=== PATIENT | male | born 1975 | race Caucasian/White ===

== ENCOUNTER 2017-01-24 03:21 | Emergency (ER) | payer MEDICARE, OTHER ==
[2017-01-24] MEDS ORDERED: IBUPROFEN 400 MG TAB PO STA (04:57)
--- NOTE | 2017-01-24 05:13 | ED ---
General Adult HPI - General Chief complaint: Upper Respiratory Infection Stated complaint: congestion Time Seen by Provider: 01/24/17 03:31 Source: patient Mode of arrival: ambulatory Limitations: no limitations - History of Present Illness Initial comments: This patient is a 41-year-old man who presents to be evaluated for cough, nasal congestion, low-grade temperature. The patient states that what is bothering him the most is that he has not been able to breathe through his nose and it's making it difficult for him to sleep. He tried taking an [id number]-[id number] cough remedy but it was not providing much relief. Patient denies chest pain. He states that his cough is for the most part nonproductive. He is not feeling short of breath. Onset/Timin -: days(s) Associated Symptoms: cough Treatments Prior to Arrival: other ([id number] cough remedy) - Related Data Previous Rx's Medication Instructions Recorded Benzonatate [Tessalon Perles] 100 mg PO TID PRN #20 capsule 01/24/17 Mometasone Furoate [Nasonex Nasal 1 - 2 spray EA NOSTRIL DAILY #1 01/24/17 [place]] bottle Allergies Allergy/AdvReac Type Severity Reaction Status Date / Time No Known Allergies Allergy Verified 01/24/17 03:28 Review of Systems ROS Statement: Those systems with pertinent positive or pertinent negative responses have been documented in the HPI. ROS Other: All systems not noted in ROS Statement are negative. Constitutional: Reports: fever. Denies: chills ENT: Reports: congestion. Denies: ear pain Respiratory: Reports: cough. Denies: dyspnea, wheezes, hemoptysis Cardiovascular: Denies: chest pain, palpitations, edema, syncope Gastrointestinal: Denies: abdominal pain, vomiting Musculoskeletal: Denies: back pain Skin: Denies: rash Neurological: Denies: headache, weakness, numbness Past Medical History Past Medical History: No Reported History, Hypertension History of Any Multi-Drug Resistant Organisms: None Reported Past Surgical History: No Surgical Hx Reported Past Psychological History: No Psychological Hx Reported Smoking Status: Current every day smoker Past Alcohol Use History: Occasional Past Drug Use History: Marijuana General Exam Limitations: no limitations General appearance: alert, in no apparent distress Head exam: Present: atraumatic, normocephalic Eye exam: Present: normal appearance. Absent: scleral icterus, conjunctival injection ENT exam: Present: normal oropharynx Neck exam: Present: normal inspection, full ROM, lymphadenopathy. Absent: tenderness, meningismus Respiratory exam: Present: normal lung sounds bilaterally. Absent: respiratory distress, wheezes, rales, rhonchi, stridor Cardiovascular Exam: Present: regular rate, normal rhythm, normal heart sounds GI/Abdominal exam: Present: soft. Absent: tenderness, guarding, rebound Extremities exam: Absent: pedal edema, calf tenderness Back exam: Present: normal inspection. Absent: CVA tenderness (R), CVA tenderness (L) Neurological exam: Present: alert, normal gait Skin exam: Present: warm, dry, intact, normal color. Absent: rash Course Vital Signs 01/24/17 01/24/17 03:26 05:40 Temperature 97.9 F 97.6 F Pulse Rate 75 72 Respiratory 20 16 Rate Blood Pressure 151/75 154/83 O2 Sat by Pulse 96 96 Oximetry Medical Decision Making - Medical Decision Making Patient's a 41-year-old man with upper respiratory infection and probable viral syndrome. His influenza test is negative. On arrival the patient had been concerned about possibility of developing pneumonia, but his exam does show clear lung signs and normal sats. I did offer a chest x-ray given the fever and the cough with sputum, but the patient was feeling better after being here and declined to have the x-ray. We did discuss appropriate return parameters and he will return should he have any worsening at all or if he is not improving as expected. - Lab Data Lab Results 01/24/17 Range/Units 04:10 Influenza Type A RNA Not Detected (Not Detectd) Influenza Type B (PCR) Not Detected (Not Detectd) Disposition Clinical Impression: Viral syndrome Disposition: HOME SELF-CARE Condition: Good Instructions: Viral Syndrome (ED) Prescriptions: Benzonatate [Tessalon Perles] 100 mg PO TID PRN #20 capsule PRN Reason: Cough Mometasone Furoate [Nasonex Nasal [place]] 1 - 2 spray EA NOSTRIL DAILY #1 bottle Referrals: Agapito Sinha DO [Primary Care Provider] - 1-2 days
[2017-01-24 06:21] VITALS: BP 154/83; PULSE 72; RESP 16; TEMP 97.6
== END 2017-01-24 05:40 | disposition home or self-care (01) ==
LOC: EC 03:21
DX: B34.9 Viral infection, unspecified (principal); R05 Cough; R09.81 Nasal congestion; F17.200 Nicotine dependence, unspecified, uncomplicated
CPT/HCPCS: 87502; 99283

== ENCOUNTER → 2019-08-27 | Outpatient (CLI) | payer MEDICARE, OTHER | END | disposition home or self-care (01) | LOC: LABWHC1 10:59 | PROVIDERS: ATTEND Family Medicine | DX: R94.5 Abnormal results of liver function studies (principal) | CPT/HCPCS: 36415; 82140 ==

== ENCOUNTER 2023-09-08 18:43 | Emergency (ER) | payer MEDICARE, OTHER ==
[2023-09-08 19:05] VITALS: TEMP 97.5
[2023-09-08] MEDS ORDERED: SODIUM CHLORIDE 0.9% 1,000 ML IV STA (19:09)
--- NOTE | 2023-09-08 19:26 | ED ---
General Adult HPI - General Chief complaint: Animal Bite Stated complaint: dog bite Time Seen by Provider: 09/08/23 18:54 Source: patient, RN notes reviewed, old records reviewed Mode of arrival: wheelchair Limitations: no limitations - History of Present Illness Initial comments: Patient is a 48-year-old male presents emergency Department approximately an hour and a half after suffering a dog bite to the right lower leg. Occurred on the anterior aspect of the right leg distal to the knee over the proximal anterior lateral tib-fib. No other injuries. He is not on blood thinners. States the dog is up-to-date on vaccines. Presents for further evaluation at this time. - Related Data Previous Rx's Medication Instructions Recorded Benzonatate [Tessalon Perles] 100 mg PO TID PRN #20 capsule 01/24/17 Mometasone Furoate [Nasonex Nasal 1 - 2 spray EA NOSTRIL DAILY #1 01/24/17 [place]] bottle Amoxic-Pot Clav 875-125Mg 1 tab PO Q12HR 10 Days #20 tab 09/08/23 [Augmentin 875-125] Allergies Allergy/AdvReac Type Severity Reaction Status Date / Time No Known Allergies Allergy Verified 09/08/23 18:48 Review of Systems ROS Statement: Those systems with pertinent positive or pertinent negative responses have been documented in the HPI. Review of Systems: CONST: Denies fever EYES: Denies blurry vision ENT: Denies nasal congestion C/V: Denies Chest pain RESP: Denies shortness of breath GI: Denies abdominal pain : Denies dysuria SKIN: Endorses dog bite to right leg MSK: Denies joint pain. NEURO: Denies headache ROS Other: All systems not noted in ROS Statement are negative. Past Medical History Past Medical History: Diabetes Mellitus, Hypertension Additional Past Medical History / Comment(s): fatty liver History of Any Multi-Drug Resistant Organisms: None Reported Past Surgical History: No Surgical Hx Reported Past Psychological History: No Psychological Hx Reported Smoking Status: Current every day smoker Past Alcohol Use History: Occasional Past Drug Use History: Marijuana General Exam - General Exam Comments Initial Comments: General: Appears in mild distress secondary to dog bite distress. HEAD: Normal with no signs of head trauma. EYES: EOMI ENT: Hearing grossly intact, normal oropharynx. RESPIRATORY: Clear breath sounds bilaterally. No wheezes, rales, or rhonchi. C/V: Regular rate and rhythm. S1 and S2 auscultated, no edema, peripheral pulses 2+ and intact throughout ABD: Abd is soft, nontender, nondistended EXT: Normal range of motion of the right knee, ankle. Neurovascularly intact of the right lower extremity. No involvement of the right knee. Injurie is distal to the knee joint.Soft compartments in the calf/tibula/fibula region. SKIN: Patient has puncture wounds to the right anterior lateral proximal tib-fib area. Dark, nonpulsatile blood is coming from one of the wounds with a small hematoma present. Adequately draining. NEURO: Alert and oriented 4. No focal sensory strength deficits. GCS of 15. Limitations: no limitations Course Vital Signs 09/08/23 18:44 Temperature 97.5 F L Pulse Rate 102 H Respiratory 20 Rate Blood Pressure 163/92 O2 Sat by Pulse 96 Oximetry Medical Decision Making - Medical Decision Making Was pt. sent in by a medical professional or institution (, PA, PHYSICIAN ALLERGIST IMMUNOLOGIST, urgent care, hospital, or residential...) When possible be specific @ -No Did you speak to anyone other than the patient for history (EMS, parent, family, police, friend...)? What history was obtained from this source @ -No Did you review nursing and triage notes (agree or disagree)? Why? @ -I reviewed and agree with nursing and triage notes Were old charts reviewed (outside hosp., previous admission, EMS record, old EKG, old radiological studies, urgent care reports/EKG's, residential records)? Report findings @ -No old charts were reviewed Differential Diagnosis (chest pain, altered mental status, abdominal pain women, abdominal pain men, vaginal bleeding, weakness, fever, dyspnea, syncope, h eadache, dizziness, GI bleed, back pain, seizure, CVA, palpatations, mental health, musculoskeletal)? @ -Dog bite, hematoma, muscle injury, arterial injury, this this is not all i nclusive. EKG interpreted by me (3pts min.). @ -None done X-rays interpreted by me (1pt min.). @ -X-ray revealed no evidence of retained foreign body. CT interpreted by me (1pt min.). @ -None done U/S interpreted by me (1pt. min.). @ -None done What testing was considered but not performed or refused? (CT, X-rays, U/S, labs)? Why? @ -None What meds were considered but not given or refused? Why? @ -Considered tetanus prophylaxis but patient declines. States he is up-to-date. Patient also declines analgesic medications. Did you discuss the management of the patient with other professionals (professionals i.e. , PA, PHYSICIAN ALLERGIST IMMUNOLOGIST, lab, RT, psych nurse, social insurance adviser, rn intensive care unit, teacher, control officer manager, correctional case manager)? Give summary @ -No Was smoking cessation discussed for >3mins.? @ -No Was critical care preformed (if so, how long)? @ -No Were there social determinants of health that impacted care today? How? (Homelessness, low income, unemployed, alcoholism, drug addiction, transportation, low edu. Level, literacy, decrease access to med. care, intermediate, rehab)? @ -No Was there de-escalation of care discussed even if they declined (Discuss DNR or withdrawal of care, Hospice)? DNR status @ -No What co-morbidities impacted this encounter? (DM, HTN, Smoking, COPD, CAD, Cancer, CVA, ARF, Chemo, Hep., AIDS, mental health diagnosis, sleep apnea, morbid obesity)? @ -None Was patient admitted / discharged? Hospital course, mention meds given and route, prescriptions, significant lab abnormalities, going to OR and other [facility]. @ -Based on the patient's presentation and physical exam, presents with dog bite to right leg. Patient does have a hematoma present. I did evacuate the hematoma with pressure and pressure dressing was placed over it. We'll keep this on for at least an hour and reevaluate. Patient is up-to-date on tetanus per patient. However we will obtain IV access and administered dose of Ancef as well as a 1 L fluid bolus. We will also obtain an x-ray of the right leg. Patient declines analgesic medications. He was otherwise in agreement with this plan. Patient does know the dog and states that it is up-to-date on vaccination so no concern for rabies at this time. No concern for compartment syndrome at this time as patient has soft compartments, pain is localized to the bite site. X-ray read revealed no evidence of retained foreign body. Patient's pressure dressing was taken down and wound was thoroughly irrigated with 1 L of normal saline. Pressure dressing was reapplied. I offered crutches for the patient but he declined. I believe it is safe for him to follow up but we did discuss signs and symptoms of possible compartment syndrome or worsening bleeding. Strict return precautions were discussed. Recommended he follow-up with his PCP. He states it does not work tomorrow. He will keep his leg elevated, covered, and wound cleaned. Discussed obtaining bacitracin, as well as using soap and water to keep the wound clean. Strict return precautions discussed. He was placed on Augmentin for home. I will provide the patient with a prescription for Augmentin. I instructed the patient to follow up with their PCP in the next 1-3 days. I explained that the patient should return to the emergency department if they experience any worsening symptoms. Strict return precautions were discussed with the patient. The patient expressed understanding of these instructions. I answered all questions that the patient had. The patient was discharged home in fair condition with their prescriptions and follow up information. Undiagnosed new problem with uncertain prognosis? @ -No Drug Therapy requiring intensive monitoring for toxicity (Heparin, Nitro, Insulin, Cardizem)? @ -No Were any procedures done? @ -No Diagnosis/symptom? @ -Dog bite Acute, or Chronic, or Acute on Chronic? @ -Acute Uncomplicated (without systemic symptoms) or Complicated (systemic symptoms)? @ -Complicated Side effects of treatment? @ -No Exacerbation, Progression, or Severe Exacerbation? @ -No Poses a threat to life or bodily function? How? (Chest pain, [place], [place], pneumonia, PE, COPD, DKA, ARF, appy, cholecystitis, CVA, Diverticulitis, Homicidal, Suicidal, threat to staff... and all critical care pts) @ -Unlikely Disposition Clinical Impression: Dog bite, Hematoma Disposition: HOME SELF-CARE Condition: Fair Instructions (If sedation given, give patient instructions): Animal Bite (ED) Prescriptions: Amoxic-Pot Clav 875-125Mg [Augmentin 875-125] 1 tab PO Q12HR 10 Days #20 tab Is patient prescribed a controlled substance at d/c from ED?: No Referrals: Agapito Sinha DO [Primary Care Provider] - 1-2 days Time of Disposition: 20:32
--- NOTE | 2023-09-08 20:05 | XR ---
EXAMINATION TYPE: XR tibia fibula RT DATE OF EXAM: 09/08/2023 7:55 PM CLINICAL INDICATION:Male, 48 years old with history of pain; COMPARISON: None TECHNIQUE: XR tibia fibula RT; tibia/fibula was examined in AP and lateral projections. FINDINGS: No evidence of any acute osseous pathology, joint dislocation, or soft tissue swelling is n oted. Calcaneal plantar spurring. IMPRESSION: No evidence of acute fracture.
[2023-09-08 21:07] VITALS: BP 124/71; PULSE 97; RESP 18
== END 2023-09-08 21:00 | disposition home or self-care (01) ==
LOC: EC 18:43
DX: S81.851A Open bite, right lower leg, initial encounter (principal); E11.9 Type 2 diabetes mellitus without complications; I10 Essential (primary) hypertension; F17.200 Nicotine dependence, unspecified, uncomplicated; F12.90 Cannabis use, unspecified, uncomplicated; W54.0XXA Bitten by dog, initial encounter
CPT/HCPCS: 99283; 73590; 96365; J0690

== ENCOUNTER 2023-09-24 08:56 | Emergency (ER) | payer MEDICARE, OTHER ==
--- NOTE | 2023-09-24 10:08 | ED ---
General Adult HPI - General Chief complaint: Recheck/Abnormal Lab/Rx Stated complaint: infection/right leg Time Seen by Provider: 09/24/23 09:04 Source: patient, RN notes reviewed Mode of arrival: ambulatory Limitations: no limitations - History of Present Illness Initial comments: 48-year-old male presents emergency department for wound recheck. Patient states that he was bit by a dog 16 days ago on his right leg. He states he finished his course of Augmentin. He states he's continues to have swelling but no increasing redness to the area. He states there is mild discomfort. No fevers or chills no other associated symptoms. - Related Data Previous Rx's Medication Instructions Recorded Benzonatate [Tessalon Perles] 100 mg PO TID PRN #20 capsule 01/24/17 Mometasone Furoate [Nasonex Nasal 1 - 2 spray EA NOSTRIL DAILY #1 01/24/17 [place]] bottle Amoxic-Pot Clav 875-125Mg 1 tab PO Q12HR 10 Days #20 tab 09/08/23 [Augmentin 875-125] Allergies Allergy/AdvReac Type Severity Reaction Status Date / Time No Known Allergies Allergy Verified 09/24/23 09:00 Review of Systems ROS Statement: Those systems with pertinent positive or pertinent negative responses have been documented in the HPI. ROS Other: All systems not noted in ROS Statement are negative. Past Medical History Past Medical History: Diabetes Mellitus, Hypertension Additional Past Medical History / Comment(s): fatty liver History of Any Multi-Drug Resistant Organisms: None Reported Past Surgical History: No Surgical Hx Reported Past Psychological History: No Psychological Hx Reported Smoking Status: Current every day smoker Past Alcohol Use History: Occasional Past Drug Use History: Marijuana General Exam Limitations: no limitations General appearance: alert, in no apparent distress Head exam: Present: atraumatic, normocephalic, normal inspection Neck exam: Present: normal inspection, full ROM. Absent: tenderness, meningismus, lymphadenopathy Respiratory exam: Present: normal lung sounds bilaterally. Absent: respiratory distress, wheezes, rales, rhonchi, stridor Extremities exam: Present: other (Right anterior leg swelling, healing wound noted) Course Vital Signs 09/24/23 08:58 Temperature 98.6 F Pulse Rate 87 Respiratory 20 Rate Blood Pressure 159/93 O2 Sat by Pulse 99 Oximetry Medical Decision Making - Medical Decision Making Was pt. sent in by a medical professional or institution (PREMA Alarcon, OTR FLATBED DRIVER, urgent care, hospital, or skilled nursing...) When possible be specific @ -No Did you speak to anyone other than the patient for history (EMS, parent, family, police, friend...)? What history was obtained from this source @ -No Did you review nursing and triage notes (agree or disagree)? Why? @ -I reviewed and agree with nursing and triage notes Were old charts reviewed (outside hosp., previous admission, EMS record, old EKG, old radiological studies, urgent care reports/EKG's, skilled nursing records)? Report findings @ -No old charts were reviewed Differential Diagnosis (chest pain, altered mental status, abdominal pain women, abdominal pain men, vaginal bleeding, weakness, fever, dyspnea, syncope, headache, dizziness, GI bleed, back pain, seizure, CVA, palpatations, mental health, musculoskeletal)? @ -Hematoma, abscess EKG interpreted by me (3pts min.). @ -[None X-rays interpreted by me (1pt min.). @ -None done CT interpreted by me (1pt min.). @ -None done U/S interpreted by me (1pt. min.). @ -Ultrasound right leg nonvascular Showing Evidence of Hematoma What testing was considered but not performed or refused? (CT, X-rays, U/S, la bs)? Why? @ -None What meds were considered but not given or refused? Why? @ -None Did you discuss the management of the patient with other professionals (professionals i.e. PREMA Alarcon, OTR FLATBED DRIVER, lab, RT, psych nurse, social worker health services, group work program aide, teacher, wildlife conservation officer, rn case manager)? Give summary @ -No Was smoking cessation discussed for >3mins.? @ -No Was critical care preformed (if so, how long)? @ -No Were there social determinants of health that impacted care today? How? (Homelessness, low income, unemployed, alcoholism, drug addiction, transportation, low edu. Level, literacy, decrease access to med. care, half-way, rehab)? @ -No Was there de-escalation of care discussed even if they declined (Discuss DNR or withdrawal of care, Hospice)? DNR status @ -No What co-morbidities impacted this encounter? (DM, HTN, Smoking, COPD, CAD, Cancer, CVA, ARF, Chemo, Hep., AIDS, mental health diagnosis, sleep apnea, morbid obesity)? @ -None Was patient admitted / discharged? Hospital course, mention meds given and route, prescriptions, significant lab abnormalities, going to OR and other pertinent info. @ -Discharge patient has a right leg hematoma from injury there is no convincing evidence of abscess there is no erythema or fever. Patient will be discharged in stable condition return parameters were discussed Undiagnosed new problem with uncertain prognosis? @ -No Drug Therapy requiring intensive monitoring for toxicity (Heparin, Nitro, Insulin, Cardizem)? @ -No Were any procedures done? @ -No Diagnosis/symptom? @ -Right leg hematoma Acute, or Chronic, or Acute on Chronic? @ -Acute Uncomplicated (without systemic symptoms) or Complicated (systemic symptoms)? @ -Uncomplicated Side effects of treatment? @ -No Exacerbation, Progression, or Severe Exacerbation? @ -No Poses a threat to life or bodily function? How? (Chest pain, [place], [place], pneumonia, PE, COPD, DKA, ARF, appy, cholecystitis, CVA, Diverticulitis, Homicidal, Suicidal, threat to staff... and all critical care pts) @ -No Disposition Clinical Impression: Hematoma Disposition: HOME SELF-CARE Condition: Stable Instructions (If sedation given, give patient instructions): Hematoma (ED) Additional Instructions: Please return to the Emergency Department if symptoms worsen or any other concerns. Is patient prescribed a controlled substance at d/c from ED?: No Referrals: Agapito Sinha DO [Primary Care Provider] - 1-2 days Jyoti Mojica DO [STAFF PHYSICIAN] - 1-2 days Time of Disposition: 10:21
--- NOTE | 2023-09-24 10:18 | US ---
EXAMINATION TYPE: US extremity nonvasc mass RT DATE OF EXAM: 09/24/2023 COMPARISON: NONE CLINICAL INDICATION: Male, 48 years old with history of mass vs heamtoma or abscess; Palpable lump on right anterior lower leg following dog bite Right le.2 x 1.0 x 5.0cm irregular fluid collection with internal echoes seen at patient's area o f concern IMPRESSION: Probable hematoma at the site of clinical concern. Abscess is considered less likely alt damon not entirely excluded. Correlate clinically.
[2023-09-24 10:36] VITALS: BP 154/93; PULSE 91; RESP 16; TEMP 98.1
== END 2023-09-24 10:40 | disposition home or self-care (01) ==
LOC: EC 08:56
DX: S80.11XA Contusion of right lower leg, initial encounter (principal); I10 Essential (primary) hypertension; E11.9 Type 2 diabetes mellitus without complications; F12.90 Cannabis use, unspecified, uncomplicated; F17.200 Nicotine dependence, unspecified, uncomplicated; W54.0XXA Bitten by dog, initial encounter
CPT/HCPCS: 99283